=== PATIENT | male | born 1970 | race Caucasian/White ===

== ENCOUNTER 2023-10-16 13:03 | Emergency (ER) | payer OTHER, SELFPAY ==
[2023-10-16 13:06] VITALS: BP 166/104
[2023-10-16 13:18] VITALS: BP 164/98
[2023-10-16 13:25] VITALS: BMI 31.3
[2023-10-16 13:51] LABS: % Basophils 0.7 % (0-2); % Eosinophils 0.7 % (0-6); % Immature Granulocytes 0.3 % (0-0.5); % Lymphocytes 23.3 % (20.5-51.1); Absolute Basophils 0.1 10^3/uL (0-0.2); Absolute Eosinophils 0.1 10^3/uL (0-0.7); Absolute Lymphocytes 1.8 10^3/uL (1.2-3.4); Absolute Monocytes 0.5 10^3/uL (0.1-0.6); Absolute Neutrophils 5.2 10^3/uL (1.4-6.5); Hematocrit 42.8 % (39.0-52.0); Hemoglobin 14.7 g/dL (13.0-18.0); Mean Corp Hgb Conc. 34.3 g/dL (33.0-37.0); Mean Corpuscular Hgb 30.2 pg (27.0-31.0); Mean Corpuscular Volume 88.1 fL (80.0-94.0); Mean Platelet Volume 9.4 fL (7.4-10.4); Nucleated Red Blood Cells % 0 % (-); Platelet Count 334 10^3/uL (130-400); Red Blood Cell Count 4.86 10^6/uL (4.70-6.10); Red Cell Dist. Width 11.9 % (11.5-14.5); White Blood Cell Count 7.6 10^3/uL (4.8-10.8)
[2023-10-16 13:59] LABS: ALT (SGPT) 43 U/L (0-50); AST (SGOT) 28 U/L (17-59); Alkaline Phosphatase 61 U/L (38-126); Blood Urea Nitrogen 16 mg/dl (9-20); Carbon Dioxide 22 mmol/L (22-30); Chloride 108 mmol/L (98-107); Estimated Creatinine Clearance 106 ml/min; Glucose 98 mg/dl (70-99); Sodium 137 mmol/L (135-145); Total Bilirubin 0.8 mg/dl (0.2-1.3); Total Protein 7.5 g/dl (6.3-8.2); eGFR > 60.00
[2023-10-16 14:00] VITALS: BP 141/96
[2023-10-16 14:09] LABS: Troponin I < 0.012 ng/ml
[2023-10-16] MEDS: XANAX 0.25 MG PO (14:43)
--- NOTE | 2023-10-16 14:45 | EDRN ---
this RN administered 0.25 xanax PO to the pt, this RN notified the pt that the dosage was changed from 0.5 to 0.25mg, before the pt took the pill the pt stated to this RN, 'First of all i hate taking medication but i guess it will help, second of
all this is a 0.5mg tablet not a 0.25mg tablet, this RN assured the pt that the tablet was a 0.25mg tablet and even showed the pt the packaging in which the tablet came in, the pt took the PO tablet, VS WNL, no s/s of distress, the pt still appears
anxious, will continue to monitor the pt closely
[2023-10-16 14:53] LABS: TSH Reflex To Free T4 1.35 uIU/ml (0.47-4.68)
[2023-10-16 15:00] VITALS: BP 139/96
[2023-10-16 16:00] VITALS: BP 141/88
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
== END 2023-10-16 16:13 | disposition home or self-care (01) ==
LOC: EMR 13:03
PROVIDERS: EMERGENCY PHYSICIAN Emergency Medicine; FAMILY PHYSICIAN Family Medicine
DX: F41.9 Anxiety disorder, unspecified (principal); R03.0 Elevated blood-pressure reading, without diagnosis of hypertension
CPT/HCPCS: 99284; 80053; 84443; 84484; 85025; 93005